=== PATIENT | female | born 1990 | race Caucasian/White ===

== ENCOUNTER 2020-12-11 03:24 | Outpatient (CLI) | payer BC, SELFPAY ==
[2020-12-13 19:14] LABS: Antimullerian Hormone 3.1 ng/mL (0.58-8.1)
== END 2020-12-11 03:25 | disposition home or self-care (01) ==
LOC: LBO 03:24
PROVIDERS: Visit Provider Obstetrics & Gynecology
DX: N91.2 Amenorrhea, unspecified (principal); R63.6 Underweight
CPT/HCPCS: 36415; 83520

== ENCOUNTER 2022-01-29 16:40 | Outpatient (REF) | payer BC, SELFPAY ==
--- NOTE | 2022-01-29 14:25 | PAPFT_PTH ---
PATIENT: Vibha West LOC: [facility] U#:[id number] AGE/SX: 31/F ROOM: RE01/29/[address]: Arleth Pierson DO : 1990 BED: DIS: 01/29/2022 SPEC #: [id number] RECD: 01/29/22 17:01 STATUS: YOBANY REQ #: [id number] LILLY: 01/29/22 14:[address]: Arleth Pierson DEPT: [facility] Cytology RECD BY: Renea Mosqueda Tissues: 1 - CX/ENDOCX FOR PAP SMEARS Procedures: PAP THIN PREP/[facility] Screening HPV DNA PROBE Comments: [id number] (CHLAMYDIA/GC)
[2022-01-30 15:11] LABS: Chlamydia Result Negative (Negative); GC Result Negative (Negative)
== END 2022-01-29 16:41 | disposition home or self-care (01) ==
LOC: LBN 16:40
PROVIDERS: Visit Provider Obstetrics & Gynecology
DX: Z12.4 Encounter for screening for malignant neoplasm of cervix (principal); Z11.51 Encounter for screening for human papillomavirus (HPV); Z11.3 Encounter for screening for infections with a predominantly sexual mode of transmission
CPT/HCPCS: 87491; 87591; 88142; 87624

== ENCOUNTER 2024-03-01 12:11 | Outpatient (REF) | payer BC, SELFPAY ==
--- NOTE | 2024-03-01 11:30 | PAPFT_PTH ---
PATIENT: Vibha West LOC: [facility] U#:[id number] AGE/SX: 33/F ROOM: RE03/01/[address]: Kelly Connors MD : 1990 BED: DIS: 03/01/2024 SPEC #: [id number] RECD: 03/01/24 18:02 STATUS: YOBANY REQ #: [id number] LILLY: 03/01/24 11:[address]: Kelly Connors DEPT: COUNTS INCLUDE 234 BEDS AT [facility] Cytology RECD BY: Renea Mosqueda ENTERED: 03/01/24 18:02 SP TYPE: PAPFT OT DR: Unknown,Unknown Tissues: 1 - CX/ENDOCX FOR PAP SMEARS Procedures: PAP THIN PREP/[facility] Screening HPV DNA PROBE Comments: [id number] (HPV 16 & 18/45)
== END 2024-03-01 12:12 | disposition home or self-care (01) ==
LOC: LBN 12:11
PROVIDERS: Visit Provider Obstetrics & Gynecology
DX: N91.2 Amenorrhea, unspecified (principal); N97.0 Female infertility associated with anovulation; R63.6 Underweight; Z01.419 Encounter for gynecological examination (general) (routine) without abnormal findings
CPT/HCPCS: 88142; 87624